=== PATIENT | male | born 1965 | race Caucasian/White ===

== ENCOUNTER 2017-01-31 20:21 | Emergency (ER) | payer OTHER ==
[~2017-01-31] VITALS: Ht 165.1 cm; Wt 95.0 kg
[2017-01-31 20:32] VITALS: Ht 165.1 cm; Wt 95.0 kg
[2017-02-02] MEDS ORDERED: DIPHTH/TET/ACEL PERTUSS (ADULT) 0.5 ML VIAL ONE (18:01)
== END 2017-02-01 01:47 | disposition home or self-care (01) ==
LOC: FTE 20:21
DX: S51.811A Laceration without foreign body of right forearm, initial encounter (principal); W26.8XXA Contact with other sharp object(s), not elsewhere classified, initial encounter; Y92.9 Unspecified place or not applicable; Z23 Encounter for immunization
CPT/HCPCS: 90471; Z7502; 90715; 99283